=== PATIENT | female | born 1955 | race Caucasian/White ===

== ENCOUNTER 2020-03-31 10:02 | Emergency (ER) | payer MEDICARE, MEDICAID, SELFPAY ==
[2020-03-31 10:16] VITALS: BP 175/89; PULSE 106; RESP 18; TEMP 36.2; O2SAT 98
--- NOTE | 2020-03-31 10:36 | ED.GENADULT ---
HPI - General Adult General Chief complaint: Urogenital-Female Stated complaint: passing blood in urine Time Seen by Provider: 03/31/20 10:36 Source: patient and RN notes reviewed Mode of arrival: ambulatory Limitations: no limitations History of Present Illness HPI narrative: 64-year-old female presents with urinary complaints for the past 2 days. Dysuria consist of hematuria, foul smelling urine, burning, frequency, and urgency.? No treatment.? Denies fever or chills. No significant pelvic pain. No vaginal discharge.? No concerns for STDs, has not had sex since 2010. Exacerbating factors urinating.? Denies vaginal bleeding. Hysterectomy.? No flank pain. Denies nausea, vomiting, and abdominal pain.? Tolerating liquids well.? Remains active. The patient reports she have not been diagnosed with COVID-19. The patient reports she is not waiting for the results of a COVID-19 lab test. The patient reports she do not have fever, chills, weakness, fatigue, or myalgia. The patient reports she do not have a new or worsening cough or shortness of breath. Denies chest pain. The patient reports she do not have any rhinorrhea, congestion, sore throat, and diarrhea. Denies recent traveling. Denies concerns for COVID-19 or exposures been home with limited outdoor exposure except for essential household needs and return home. At this time, patient is not suspected of having COVID-19. Some parts of this dictation were generated by voice recognition software and may contain typographical and/or grammatical inaccuracies. Related Data Home Medications Medication Instructions Recorded Confirmed insulin glargine [Lantus U-100 2 unit SUBCUT DAILY 03/31/20 03/31/20 Insulin] Allergies Allergy/AdvReac Type Severity Reaction Status Date / Time propoxyphene Allergy Intermediate Confusion Verified 03/31/20 10:37 hydrocodone Allergy Unknown INCOHERENT Verified 01/20/18 14:05 Review of Systems Review of Systems: Narrative: CONSTITUTIONAL: Denies fever, chills, sweats. EYES: Denies visual changes, redness, discharge. ENT: Denies rhinorrhea, congestion, sore throat, otalgia. CARDIOVASCULAR: Denies chest pain, palpitations, edema. RESPIRATORY: Denies dyspnea, wheezing, cough. GASTROINTESTINAL: Denies abdominal pain, nausea, vomiting, diarrhea. GENITOURINARY: Complains of dysuria (hematuria, foul smelling urine, burning, frequency, and urgency). Denies abnormal discharge. SKIN: Denies rash or itching. MUSCULOSKELETAL: Denies acute back pain, joint pain, or myalgia. NEUROLOGIC: Denies numbness or focal weakness. PSYCHIATRIC: Denies anxiety or depression. All systems reviewed & are unremarkable except as noted in HPI and below. [facility] Past Medical History Medical History (Updated 03/31/20 @ 12:34 by JUANJO Majano) Anxiety Arthritis Asthma Bipolar disorder Cataracts, bilateral Diabetes [place] (hard of hearing) Hypercholesteremia Hypertension IBS (irritable bowel syndrome) Neuropathy of LUE with tremors Pelvis fracture Uterine cancer Surgical History Surgical History (Updated 03/31/20 @ 12:34 by JUANJO Majano) History of arthroscopic knee surgery History of cholecystectomy History of hysterectomy History of tonsillectomy Family History Family History (Updated 03/31/20 @ 12:35 by JUANJO Majano) Father Heart disease Diabetes mellitus Alzheimers disease Mother , Lung [place] Lung cancer Social History Social History (Updated 03/31/20 @ 12:36 by JUANJO Majano) Smoking status: Never smoker Second hand tobacco smoke exposure: No Alcohol intake: never Substance use: never Living arrangements: alone Occupation/Education: retired Gender identity (if verbalized by the patient): Female Comments At time of signature, agree with nurse past medical, surgical, social, and family history.?There is no relevant family history pertinent to the presenting complaint.
== END 2020-03-31 10:56 | disposition home or self-care (01) ==
PROVIDERS: Emergency Provider Nurse Practitioner Family; PCP Physician Assistant
DX: R31.9 Hematuria, unspecified (principal); N39.0 Urinary tract infection, site not specified; E11.9 Type 2 diabetes mellitus without complications; I10 Essential (primary) hypertension; Z85.42 Personal history of malignant neoplasm of other parts of uterus; Z79.4 Long term (current) use of insulin
CPT/HCPCS: 81003; 87077; 87086; 87088; 87186; 99213; G0463

== ENCOUNTER 2021-04-19 08:39 | Emergency (ER) | payer MEDICARE, MEDICAID, SELFPAY ==
--- NOTE | 2021-04-19 08:41 | ED.LOWEXIN ---
HPI - Extremity Injury (Lower) General Chief Complaint: Extremity Injury, Lower Stated Complaint: tingling of feet Time Seen by Provider: 04/19/21 08:41 Source: patient and RN notes reviewed History of Present Illness HPI Narrative: Patient is a 65-year-old female who presents the urgent care with complaints of tingling in both feet. Patient states it is worse at night. Patient is aware that she does have neuropathy and is not currently on any medications for her neuropathy. Patient states that she has had the tingling in her bilateral hands for many years as well as a tingling in the feet. Patient states that yesterday she went to speak to her PCP and she fired him . Patient states that Enoc orellana would not see her because she did not have an appointment. Patient states that she would like a follow-up with a neurologist and/or a new PCP. Patient denies of any new onset of any symptoms. No other acute complaints. No acute distress noted. Patient aware of the plan of care. Some parts of this dictation were generated by voice recognition software and may contain typographical and/or grammatical inaccuracies. Related Data Home Medications Medication Instructions Recorded Confirmed insulin glargine [Lantus U-100 2 unit SUBCUT DAILY 03/31/20 03/31/20 Insulin] Allergies Allergy/AdvReac Type Severity Reaction Status Date / Time propoxyphene Allergy Intermediate Confusion Verified 03/31/20 10:37 hydrocodone Allergy Unknown INCOHERENT Verified 01/20/18 14:05 Review of Systems Review of Systems: Narrative: CONSTITUTIONAL: Denies fever, chills, or sweats. EYES: Denies visual changes, redness, or discharge. ENT: Denies rhinorrhea, congestion, sore throat, or otalgia. CARDIOVASCULAR: Denies chest pain, palpitations, or edema. RESPIRATORY: Denies cough or dyspnea. GASTROINTESTINAL: Denies abdominal pain, nausea, vomiting, or diarrhea. GENITOURINARY: Denies dysuria or hematuria. SKIN: Denies rash or itching. MUSCULOSKELETAL: Denies back pain, joint pain, or myalgia. NEUROLOGIC: Reports of chronic tingling on bilateral feet. Denies headache, numbness, or weakness. All other systems reviewed are negative, except as documented in HPI. [facility] Past Medical History Medical History (Updated 04/19/21 @ 08:56 by JUANJO Hoyt) Anxiety Arthritis Asthma Bipolar disorder Cataracts, bilateral Diabetes [place] (hard of hearing) Hypercholesteremia Hypertension IBS (irritable bowel syndrome) Neuropathy of LUE with tremors Pelvis fracture Uterine cancer Surgical History Surgical History (Updated 03/31/20 @ 12:34 by JUANJO Majano) History of arthroscopic knee surgery History of cholecystectomy History of hysterectomy History of tonsillectomy Family History Family History (Updated 03/31/20 @ 12:35 by JUANJO Majano) Father Heart disease Diabetes mellitus Alzheimers disease Mother , Lung CA Lung cancer Social History Social History (Updated 03/31/20 @ 12:36 by JUANJO Majano) Smoking status: Never smoker Second hand tobacco smoke exposure: No Alcohol intake: never Substance use: never Gender identity (if verbalized by the patient): Female Comments At the time of my signature, I reviewed and agree with the nursing past medical, surgical, social, and family history. There is no relevant family history pertinent to the patient complaint. Exam Narrative: Exam Narrative: GENERAL: This is a well-nourished, well-developed patient, in no apparent distress. HEAD: normocephalic, atraumatic. EYES: PERRL. Sclera clear/white. Vision is grossly intact. EARS: External ears normal NOSE: External nose normal with no obvious nasal discharge, nares without redness, no rhinorrhea. THROAT: Mucous membranes moist NECK: Neck supple CARDIOVASCULAR: Regular rate and rhythm without murmurs, gallops, or rubs. RESPIRATORY: Clear to auscultation. Breath sounds equal bi
[2021-04-19 08:46] VITALS: BP 137/81; PULSE 98; RESP 16; TEMP 36.6; O2SAT 99
== END 2021-04-19 09:00 | disposition home or self-care (01) ==
PROVIDERS: Emergency Provider Nurse Practitioner Family; PCP Physician Assistant
DX: E11.42 Type 2 diabetes mellitus with diabetic polyneuropathy (principal); H26.9 Unspecified cataract; E78.00 Pure hypercholesterolemia, unspecified; Z85.42 Personal history of malignant neoplasm of other parts of uterus; M19.90 Unspecified osteoarthritis, unspecified site
CPT/HCPCS: 99211; G0463

== ENCOUNTER 2021-11-24 15:41 | Emergency (ER) | payer OTHER, SELFPAY ==
--- NOTE | ~2021-11-24 | XR_ITS ---
EXAMINATION: XR foot RT min 3V EXAM DATE: 11/24/2021 16:18 INDICATION: Possible Injury,3rd Digit Dorsal 1st Metatarsal Bruising TECHNIQUE: Right foot dorsoplantar, lateral and oblique projections obtained and reviewed. There is no prior study for comparison. FINDINGS: Right metatarsal bones unremarkable. There are no acute fractures or dislocations identifi ed. There is no subcutaneous gas. The soft tissue is unremarkable. There are no radiopaque foreig n bodies. IMPRESSION: No acute osseous findings. Reviewed, dictated and finalized at location G. MBLY OPERATOR IMPRESSION: No acute osseous findings.
[2021-11-24 15:58] VITALS: BP 186/95; PULSE 105; RESP 18; TEMP 37; O2SAT 98
--- NOTE | 2021-11-24 15:58 | ED.LOWEXIN ---
HPI - Extremity Injury (Lower) General Chief Complaint: Extremity Injury, Lower Stated Complaint: right foot swollen and discolored toe Time Seen by Provider: 11/24/21 15:50 Source: patient and RN notes reviewed History of Present Illness HPI Narrative: Patient is 66-year-old female who presents the urgent care with complaints of bruising to the right great toe. Patient states that she noticed it yesterday. Patient does have neuropathy and denies of any known injury but states that she was drinking wine the other day and may have stubbed her toe . Patient states that she called the EMT and they told her to go to the emergency room to have her toe checked out . Patient currently denies of any pain. Patient has not done anything for the toe. No other acute complaints. No acute distress noted. Patient read the plan of care. Some parts of this dictation were generated by voice recognition software and may contain typographical and/or grammatical inaccuracies. Related Data Home Medications Medication Instructions Recorded Confirmed insulin glargine [Lantus U-100 2 unit SUBCUT DAILY 03/31/20 04/19/21 Insulin] lisinopril 40 mg PO DAILY 11/24/21 11/24/21 potassium chloride 10 meq PO DAILY 11/24/21 11/24/21 Allergies Allergy/AdvReac Type Severity Reaction Status Date / Time propoxyphene Allergy Intermediate Confusion Verified 11/24/21 15:57 hydrocodone Allergy Unknown INCOHERENT Verified 11/24/21 15:57 Review of Systems Review of Systems: CONSTITUTIONAL: Denies fever, chills, or sweats. EYES: Denies visual changes, redness, or discharge. ENT: Denies rhinorrhea, congestion, sore throat, or otalgia. CARDIOVASCULAR: Denies chest pain, palpitations, or edema. RESPIRATORY: Denies cough or dyspnea. GASTROINTESTINAL: Denies abdominal pain, nausea, vomiting, or diarrhea. GENITOURINARY: Denies dysuria or hematuria. SKIN: Reports of bruising to the right great toe MUSCULOSKELETAL: Denies back pain, joint pain, or myalgia. NEUROLOGIC: Denies headache, numbness, or weakness. All other systems reviewed are negative, except as documented in HPI. [facility] Past Medical History Medical History (Updated 11/24/21 @ 16:35 by JUANJO Hoyt) Anxiety Arthritis Asthma Bipolar disorder Cataracts, bilateral Diabetes [place] (hard of hearing) Hypercholesteremia Hypertension IBS (irritable bowel syndrome) Neuropathy of LUE with tremors Pelvis fracture Uterine cancer Surgical History Surgical History (Updated 03/31/20 @ 12:34 by JUANJO Majano) History of arthroscopic knee surgery History of cholecystectomy History of hysterectomy History of tonsillectomy Family History Family History (Updated 03/31/20 @ 12:35 by JUANJO Majano) Father Heart disease Diabetes mellitus Alzheimers disease Mother , Lung CA Lung cancer Social History Social History (Updated 03/31/20 @ 12:36 by JUANJO Majano) Smoking status: Never smoker Second hand tobacco smoke exposure: No Alcohol intake: never Substance use: never Gender identity (if verbalized by the patient): Female Comments At the time of my signature, I reviewed and agree with the nursing past medical, surgical, social, and family history. There is no relevant family history pertinent to the patient complaint. Exam Narrative: GENERAL: This is a well-nourished, well-developed patient HEAD: normocephalic, atraumatic. EYES: PERRL. Sclera clear/white. Vision is grossly intact. EARS: External ears normal NOSE: External nose normal with no obvious nasal discharge, nares without redness, no rhinorrhea. THROAT: Mucous membranes moist NECK: Neck supple SKIN: Ecchymotic lesion to the dorsal aspect of the right great toe near the MCP. Warm, intact with no suspicious lesions or rash, good texture and turgor. NEURO: awake, alert, and oriented to person, place and time. There were no obvious focal neurologic abnormalities. EXTREMIT
[2021-11-24 16:22] VITALS: BP 186/95; PULSE 105; RESP 18; TEMP 37; O2SAT 98
--- NOTE | 2021-11-24 16:30 | PC.NURSE ---
PT DECLINED WHEELCHAIR TO RADIOLOGY AND ICE FOR COMFORT
== END 2021-11-24 16:38 | disposition home or self-care (01) ==
PROVIDERS: Emergency Provider Nurse Practitioner Family
DX: S90.121A Contusion of right lesser toe(s) without damage to nail, initial encounter (principal); X58.XXXA Exposure to other specified factors, initial encounter; E11.42 Type 2 diabetes mellitus with diabetic polyneuropathy; M19.90 Unspecified osteoarthritis, unspecified site; E78.00 Pure hypercholesterolemia, unspecified; I10 Essential (primary) hypertension; H26.9 Unspecified cataract; Z79.4 Long term (current) use of insulin
CPT/HCPCS: 73630; 99213; G0463

== ENCOUNTER 2023-05-18 15:08 | Emergency (ER) | payer OTHER, SELFPAY ==
[2023-05-18 15:18] VITALS: BP 165/95; PULSE 107; RESP 18; TEMP 36.7; O2SAT 98
[2023-05-18 16:24] LABS: Glucose Point of Care 222 mg/dl (65-105)
--- NOTE | 2023-05-18 16:24 | PC.NURSE ---
PT HAS BEEN DRINKING WATER IN CLINIC AND OF YET UNABLE TO PROVIDE A URINE SPECIMEN. RENETTA TABOR RN
--- NOTE | 2023-05-18 16:53 | ED.GENADULT ---
HPI - General Adult General Chief complaint: Urogenital-Female Stated complaint: kidney inf Source: patient Mode of arrival: ambulatory Limitations: no limitations History of Present Illness HPI narrative: Patient presents for evaluation of urinary symptoms. Current symptoms have been present for approximately 5 days. She has had intermittent urinary symptoms over the last 5 months. She indicates when she is symptomatic she typically consumes vinegar and this helps alleviate her symptoms. She reports foul smelling urine, urgency, hesitancy, frequency and some dysuria only at the end of her urinary stream. No fever, chills, abdominal pain, vaginal bleeding/discharge. She does have some lower back pain. Surgical history positive for hysterectomy. She stopped taking her medications many months ago. She has an upcoming appt with a new PCP, Dr Raygoza. Related Data Allergies Allergy/AdvReac Type Severity Reaction Status Date / Time propoxyphene Allergy Intermediate Confusion Verified 05/18/23 15:22 hydrocodone Allergy Unknown INCOHERENT Verified 05/18/23 15:22 Review of Systems Review of Systems: CONSTITUTIONAL: Denies fever, chills, or sweats. EYES: Denies visual changes, redness, or discharge. ENT: Denies rhinorrhea, congestion, sore throat, or otalgia. CARDIOVASCULAR: Denies chest pain, palpitations, or edema. RESPIRATORY: Denies cough or dyspnea. GASTROINTESTINAL: Denies abdominal pain, nausea, vomiting, or diarrhea. GENITOURINARY: Reports urinary frequency, urgency, hesitancy, and dysuria only then of her urinary stream. SKIN: Denies rash or itching. MUSCULOSKELETAL:Reports low back pain. Denies joint pain, or myalgia. NEUROLOGIC: Denies headache, numbness, dizziness, or weakness. PSYCHIATRIC: Denies anxiety or depression. [facility] Past Medical History Medical History Anxiety Arthritis Asthma Bipolar disorder Cataracts, bilateral Diabetes [place] (hard of hearing) Hypercholesteremia Hypertension IBS (irritable bowel syndrome) Neuropathy of LUE with tremors Pelvis fracture Uterine cancer Surgical History Surgical History History of arthroscopic knee surgery History of cholecystectomy History of hysterectomy History of tonsillectomy Family History Family History (Reviewed 05/18/23 @ 16:57 by Ken Torrez, [facility], ) Father Heart disease Diabetes mellitus Alzheimers disease Mother , Lung CA Lung cancer Social History Social History (Reviewed 05/18/23 @ 16:57 by Ken Torrez, [facility], ) Smoking status: Never smoker Second hand tobacco smoke exposure: No Alcohol intake: never Substance use: never Living arrangements: alone Occupation/Education: retired Gender identity (if verbalized by the patient): Female Exam Narrative: GENERAL: Well-appearing, well-nourished, and in no acute distress. She has disheveled appearance. HEAD: Normocephalic, atraumatic. EYES: PERRLA and EOMI. ENT: Nares clear, no rhinorrhea or epistaxis. Mucous membranes moist. Oropharynx without tonsillar hypertrophy exudate or other lesions. Bilateral TMs pearly velazquez nonbulging NECK: Supple. No adenopathy or masses. No carotid bruits or JVD CHEST: Clear to auscultation. No respiratory distress. No wheezes rales or rhonchi HEART: Regular rate and rhythm. No murmur heard. Normal peripheral pulses. ABDOMEN: Soft, nontender, nondistended, normal active bowel sounds. EXTREMITIES: Normal range of motion. No edema. SKIN: Warm, dry, no rash. NEURO: No focal deficits. Alert and oriented x3. PSYCH: Odd affect Course Course Emergency Course: This is a 67-year-old female who presented for evaluation of urinary symptoms. Urine today nitrite positive. Will send urine for culture. Start bactrim. Follow up with new PCP. Increase fluids. Discuss BP with new PCP. She is
--- NOTE | 2023-05-18 16:53 | PC.NURSE ---
URINE SPECIMEN OBTAINED ENOUGH FOR A URINE DIP. RENETTA TABOR RN
== END 2023-05-18 17:08 | disposition home or self-care (01) ==
PROVIDERS: Emergency Provider Nurse Practitioner
DX: N39.0 Urinary tract infection, site not specified (principal); M19.90 Unspecified osteoarthritis, unspecified site; J45.909 Unspecified asthma, uncomplicated; H26.9 Unspecified cataract; E11.9 Type 2 diabetes mellitus without complications; E78.00 Pure hypercholesterolemia, unspecified; G62.9 Polyneuropathy, unspecified; Z85.42 Personal history of malignant neoplasm of other parts of uterus
CPT/HCPCS: 81003; 82948; 99212; G0463